=== PATIENT | male | born 1995 | race Caucasian/White ===

== ENCOUNTER 2020-01-23 14:59 | Outpatient (REF) | payer MEDICAID, SELFPAY ==
[2020-01-23 15:57] LABS: MANUAL DIFF FLAG NO
[2020-01-23 16:04] LABS: Basophils Percent Auto 0.4 % (0-2); Eosinophils Absolute Auto 0.3 X10*3/uL (0.0-0.4); Eosinophils Percent Auto 3.5 % (0-4); Hematocrit 46.3 % (42-52); Hemoglobin 15.3 g/dl (14.0-18.0); Imm Gran Abs Auto 0.03 X10*3/uL (0.00-0.03); Imm Gran Pct Auto 0.4 % (0.0-0.4); Lymphocytes Percent Auto 12.6 % (20-40); Mean Corpuscular Hemoglobin 29.5 pg (27.0-33.0); Mean Corpuscular Volume 89.2 fL (80-98); Mean Platelet Volume 10.4 fL (9.4-12.4); Monocytes Absolute Auto 0.5 X10*3/uL (0.1-1.2); Monocytes Percent Auto 6.9 % (2-11); Neutrophils Absolute Auto 5.9 X10*3/uL (2.0-8.3); Neutrophils Percent Auto 76.2 % (45-73); Platelet Count 217 X10*3/uL (160-400); Red Blood Count 5.19 X10*6/uL (4.60-5.80); Red Cell Distribution Width 12.5 % (11.0-16.0); White Blood Count 7.8 X10*3/uL (4.8-10.8)
[2020-01-23 16:24] LABS: Alanine Aminotransferase 26 U/L (0-40); Albumin Level 4.8 g/dL (3.5-5.0); Alkaline Phosphatase 47 U/L (39-117); Anion Gap 12 (12-20); Aspartate Amino Transferase 28 U/L (5-37); Bilirubin Total 0.5 mg/dL (0.0-1.0); Blood Urea Nitrogen 10 mg/dL (9-16); Calcium 9.2 mg/dL (8.4-10.2); Carbon Dioxide 27 mmol/L (22-29); Chloride 104 mmol/L (96-108); Estimated Glomerular Filt Rate > 60; Glucose Random 96 mg/dL (60-115); Potassium 3.9 mmol/l (3.3-5.1); Sodium 139 mmol/L (135-145); Total Protein 7.5 g/dL (6.5-8.0)
== END 2020-01-23 15:00 | disposition home or self-care (01) ==
LOC: HO.LAB 14:59
PROVIDERS: PCP Family Medicine; Visit Provider Family Medicine
DX: K92.1 Melena (principal); R10.84 Generalized abdominal pain
CPT/HCPCS: 36415; 80053; 85025

== ENCOUNTER 2020-01-24 10:33 | Outpatient (REF) | payer MEDICAID, SELFPAY | END 2020-01-24 10:34 | disposition home or self-care (01) | LOC: HO.LNP 10:33 | PROVIDERS: Visit Provider Family Medicine | DX: R10.84 Generalized abdominal pain (principal); K92.1 Melena | CPT/HCPCS: 87338 ==

== ENCOUNTER → 2020-04-09 14:08 | Outpatient (BNVA) | payer MEDICAID, SELFPAY | PROVIDERS: PCP Family Medicine; Visit Provider Physician Assistant | DX: Z76.89 Persons encountering health services in other specified circumstances (principal) ==

== ENCOUNTER 2020-05-02 12:10 | Day surgery (SDC) | payer MEDICAID, SELFPAY ==
[2020-04-25 20:17] VITALS: BMI 22.0
--- NOTE | 2020-05-01 12:03 | HO.ANESPROP2 ---
Documented by User: Ana Ndiaye 05/01/20 12:09 HPI - Anesthesia Eval Consult details Narrative: 24yo M for Upper Endoscopy and Colonoscopy FORMERLY [facility], [facility] Past Medical History Medical History Hypertension Left upper quadrant pain Rectal bleeding Family History Family History Father Unknown family medical history Mother No problems noted. Social History Social History Household Members: Family Alcohol intake: current Smoking Status: Never smoker Second Hand Smoke Exposure: No Use of substances other than those prescribed or required for medical reasons: Yes Substance Use Type: Marijuana Substance Use Frequency: Daily Advance Directives: No Advance Directives Information Provided: No Advance Directives on File: No Recently lost weight without trying: No Current occupational status: unemployed Meds Allergies Allergy/AdvReac Type Severity Reaction Status Date / Time Penicillins [PENICILLINS] Allergy Unknown HIVES Verified 05/02/20 12:31 Home Medications Medication Instructions Recorded Confirmed Type cholecalciferol (vitamin D3) 125 mcg PO DAILY 04/25/20 04/25/20 History [Vitamin D3] multivitamin 1 tab PO DAILY 04/25/20 04/25/20 History omega 7-qzn-gdl-fish oil [Fish Oil] 1 cap PO BID 04/25/20 04/25/20 History Exam Exam Date and Time: May 01, 2020 1203 Height,Weight and Vital Signs: Height 5 ft 8 in Weight 65.771 kg Assessment and Plan Assessment Anesthesia Assessment: Chart Reviewed Documented by User: Iwona Nelson 05/02/20 13:36 FORMERLY [facility], [facility] Past Medical History Medical History Hypertension Left upper quadrant pain Rectal bleeding Family History Family History Father Unknown family medical history Mother No problems noted. Social History Social History (Reviewed 05/02/20 @ 13:28 by Iwona Clarke Household Members: Family Alcohol intake: current Smoking Status: Never smoker Second Hand Smoke Exposure: No Use of substances other than those prescribed or required for medical reasons: Yes Substance Use Type: Marijuana Substance Use Frequency: Daily Advance Directives: No Advance Directives Information Provided: No Advance Directives on File: No Recently lost weight without trying: No Current occupational status: unemployed Meds Allergies Allergy/AdvReac Type Severity Reaction Status Date / Time Penicillins [PENICILLINS] Allergy Unknown HIVES Verified 05/02/20 12:31 Home Medications Medication Instructions Recorded Confirmed Type cholecalciferol (vitamin D3) 125 mcg PO DAILY 04/25/20 04/25/20 History [Vitamin D3] multivitamin 1 tab PO DAILY 04/25/20 04/25/20 History omega 0-ufw-qlu-fish oil [Fish Oil] 1 cap PO BID 04/25/20 04/25/20 History Exam Airway Mallampati Class: II TM Dist: >3cm Neck ROM: Full Heart: RRR Lungs: CTA Assessment and Plan Assessment Anesthesia Assessment: Anesthesia Plan Discussed Final Anesthetic Review NPO: Yes ASA Class: II Final Preanesthetic Review: Meds/Allgs Chart Reviewed, Consent Obtained/Reviewed and Anes Risks/Benef Reviewed Patient Risk: Low Procedure Risk: Intermediate Anesthetic Plan Anesthetic Plan: MAC: Disposition: Standard PACU
[2020-05-02 12:25] VITALS: BP 145/82; PULSE 68; RESP 18; TEMP 36.6; O2SAT 100
[2020-05-02] MEDS: Lactated Ringers 1,000 ML 100 ML IVCONT (12:31)
--- NOTE | 2020-05-02 13:22 | P.OP_ITS ---
Operative Note Operative Note Date of Service: 05/02/20 Narrative: Operative Information Procedure Description: EGD, Colonoscopy FLEXIBLE TRANSORAL UPPER GASTROINTESTINAL ENDOSCOPY AND COLONOSCOPY PROCEDURE NOTE UPPER ENDOSCOPY Consent: Indications for the procedure and potential complications of bleeding, perforation, reaction to medications and missed diagnosis were discussed with the patient and informed consent was obtained. Instrument: Olympus GIF H 190 J mid size upper endoscope Monitoring: Vital signs and clinical assessment, continuous EKG monitoring, Pulse oximetry, Carbon Dioxide monitoring and blood pressure monitoring were done throughout the procedure. Procedure: The patient was placed in the left lateral decubitis position and pre-procedure medications were administered and a bite block was placed. The endoscope was inserted into the mouth and advanced under direct vision to the third part of duodenum. A careful inspection was made as the upper endoscope was withdrawn including a retroflexed examination of the proximal stomach; Findings and interventions are described below. Findings: Larynx:normal Esophagus: GE junction at 40 cm, diaphragm hiatus at 40 cm, normal mucosa Stomach:Patchy erythema. Biopsies were obtained. Grade 3 flap valve on retroflexed examination of the cardia. Patulous LES Duodenum: Normal bulb and descending duodenum, bx taken Intervention: Biopsies as noted above COLONOSCOPY Instrument: Olympus variable stiffness pediatric scope 190L Colonoscopy Monitoring: Vital signs and clinical assessment, continuous EKG monitoring, Pulse oximetry, Carbon Dioxide monitoring and blood pressure monitoring were done throughout the procedure. Colon withdrawal time was 10 minutes. Procedure: The patient was placed in the left lateral decubitis position and pre-procedure medications were administered. After a digital rectal examination of the ano-rectum, the video colonoscope was inserted into the rectum and advanced through the colon to the cecum/TI. The colonoscope was slowly withdrawn in a retrograde panoramic fashion and the colon mucosa was carefully examined including a retroflexed view of the rectum. Findings and interventions are described below. Procedure Difficulty:easy Findings: bx taken from TI, right colon, transverse, left colon and rectum in separate jars Terminal Ileum-normal Cecum:normal Ascending Colon: normal Transverse Colon -normal Descending Colon:normal Sigmoid Colon: normal Rectum: Patchy erythema with edema and erosions noted in distal and proximal rectal vault Retroflexion with small internal hemorrhoids, grade I Anorectum - normal Colon preparation: [place] Bowel Preparation Scale Right colon; 2 Transverse colon:3 Left colon; 2 (0 = Unprepared colon segment with mucosa not seen due to solid stool that cannot be cleared. 1 = Portion of mucosa of the colon segment seen, but other areas of the colon segment not well seen due to staining, residual stool and/or opaque liquid. 2 = Minor amount of residual staining, small fragments of stool and/or opaque liquid, but mucosa of colon segment seen well. 3 = Entire mucosa of colon segment seen well with no residual staining, small fragments of stool or opaque liquid) Impression and Post Procedure Diagnosis: Endoscopy Findings: gastritis Colonoscopy Findings: proctitis internal hemorrhoids Plan: Await Pathology results Repeat Colonoscopy aged 45 or earlier if clinically indicated High fiber diet leaflet avoid straining at stool, epsom salts and sitz bath, anusol supps or cream prn trial of proctofoam Above findings were reviewed with the patient and relevant handouts were provided if indicated.
--- NOTE | 2020-05-02 13:22 | MHC.SHP ---
Pre-Procedural Eval Section B Chief Complaint: rectal bleeding Relevant Family History (Specify if Yes): No Relevant Social History: None Present Medications: see Short Stay Collaborative assessment Medical History: Significant History (Hypertension Left upper quadrant pain Rectal bleeding) History of Previous Operations: No relevant previous surgery Allergies: Allergies Allergy/AdvReac Type Severity Reaction Status Date / Time Penicillins [PENICILLINS] Allergy Unknown HIVES Verified 05/02/20 12:31 Review of Systems Sugical H&P ROS: Negative: Constitution, Cardiovascular, Respiratory, Neurological, Psychiatric, Hem-Onc, Allergic/Immunologic, Gastrointestinal, Genitourinary, Musculoskeletal, Integumentary, Endocrine and Eyes/Ears/Nose/Throat Exam Surgical H&P Exam: Normal: HEENT, Normal: Heart, Normal: Lungs, Normal: Extremities, Normal: Abdomen, Normal: Skin and Normal: Neurological Plan Diagnosis/Plan: Unchanged I have reviewed the history and physical and performed a pertinent physical examination on my patient. No changes have occurred unless specified.
--- NOTE | 2020-05-02 13:22 | PM.OP ---
Brief Operative Note Date of Service: 05/02/20 Pre-op diagnosis: luq pain and rectal bleeding Post-op diagnosis: same Procedure: see op note Surgeon: Jorge Saleh MD Anesthesia: MAC Estimated blood loss (mL): 0 Condition: stable Disposition: PACU
[2020-05-02 14:33] VITALS: BP 117/52; PULSE 80; RESP 16; TEMP 36.2; O2SAT 100
[2020-05-02 14:48] VITALS: BP 119/83; PULSE 78; RESP 18; TEMP 36.2; O2SAT 100
--- NOTE | 2020-05-02 15:23 | HO.POSTANES ---
Post Anesthesia Evaluation Post Anesthesia Evaluation Vital Signs: Vital Signs Temp Pulse Resp BP Pulse Ox 05/02/20 14:48 97.2 F 78 18 119/83 100 05/02/20 14:33 97.2 F 80 16 117/52 L 100 05/02/20 12:25 98 F 68 18 145/82 H 100 Anesthesia: Monitored Mental Status: Awake Pain Control: Satisfactory Nausea/Vomiting: None Hydration: Adequate Anesthesia-Related Issues: No Anes. Related Issues
== END 2020-05-02 15:22 ==
LOC: HO.SSS 12:10
PROVIDERS: PCP Family Medicine; Visit Provider Internal Medicine Gastroenterology
PROC: (CPT 45380; principal; 2020-05-02 13:20)
DX: K62.5 Hemorrhage of anus and rectum (principal); K62.89 Other specified diseases of anus and rectum; K64.0 First degree hemorrhoids; K29.50 Unspecified chronic gastritis without bleeding; K44.9 Diaphragmatic hernia without obstruction or gangrene; I10 Essential (primary) hypertension; F12.90 Cannabis use, unspecified, uncomplicated; Z88.0 Allergy status to penicillin; Z79.899 Other long term (current) drug therapy
CPT/HCPCS: 45380; 43239; 88305; 88342; J2250

== ENCOUNTER → 2020-05-23 12:05 | Outpatient (BNVA) | payer MEDICAID, SELFPAY | PROVIDERS: PCP Family Medicine; Visit Provider Physician Assistant ==

== ENCOUNTER 2021-02-08 16:26 | Outpatient (REF) | payer MEDICAID, SELFPAY ==
--- NOTE | ~2021-02-08 | XR_ITS ---
EXAMINATION: XR LUMBOSACRAL SPINE WITH OBLIQUES CLINICAL INFORMATION: Low back pain. COMPARISON: None TECHNIQUE: AP, both oblique, and lateral views of the lumbar spine. Lateral view of the lumbosacral junction. FINDINGS: The vertebral bodies and posterior elements are normal. The disc spaces are preserved and the vertebral alignment is normal. The paraspinal soft tissues are normal. XR/XR lumbar spine 4V min IMPRESSION: Unremarkable examination.
== END 2021-02-08 16:27 | disposition home or self-care (01) ==
LOC: HO.XRAY 16:26
PROVIDERS: PCP Family Medicine; Visit Provider Nurse Practitioner Family
DX: M54.50 Low back pain, unspecified (principal)
CPT/HCPCS: 72110

== ENCOUNTER 2021-02-14 19:29 | Emergency (ER) | payer MEDICAID, SELFPAY ==
--- NOTE | 2021-02-14 | ECG_ITS ---
Test Reason : HIGH BLOOD PRESSURE/ PALPITATION Blood Pressure : / mmHG Vent. Rate : 105 BPM Atrial Rate : 105 BPM P-R Int : 128 ms QRS Dur : 098 ms QT Int : 344 ms P-R-T Axes : 066 051 039 degrees QTc Int : 454 ms Sinus tachycardia Otherwise normal ECG No previous ECGs available Referred By: Generic ED Physician Electronically Signed By:MARK ROBLERO MD
[2021-02-14 19:35] VITALS: BP 171/88; PULSE 115; RESP 20; TEMP 36.8; O2SAT 100; BMI 23.6
[2021-02-14 20:11] VITALS: BP 165/91; PULSE 97; RESP 18; TEMP 37.2; O2SAT 100
--- NOTE | 2021-02-14 20:12 | ED.GENADULT ---
HPI - General Adult General Chief complaint: Arrhythmia/Palpitations Stated complaint: high bp, palpitations Time Seen by Provider: 02/14/21 20:12 Source: patient Mode of arrival: ambulatory Limitations: no limitations History of Present Illness HPI narrative: Patient history of hypertension since age 10 used to be on lisinopril 2.5 mg daily which he stopped 1 year ago as his blood pressure was normal for last few days noticed palpitation with blood pressure reading to 160/90 on arrival patient's blood pressure was 171/88 heart rate was 115 on arrival patient seems slightly anxious denies any chest pain or shortness of breath Related Data Home Medications Medication Instructions Recorded Confirmed cholecalciferol (vitamin D3) 125 125 mcg PO DAILY 04/25/20 04/25/20 mcg (5,000 unit) tablet (Vitamin D3) multivitamin 1 tab PO DAILY 04/25/20 04/25/20 omega 8-xdj-xwf-fish oil 60 mg-90 1 cap PO BID 04/25/20 04/25/20 mg-500 mg capsule (Fish Oil) Previous Rx's Medication Instructions Recorded bisacodyl 5 mg tablet,delayed 10 mg PO ONCE 1 Days #2 tab 04/25/20 release (Dulcolax (bisacodyl)) polyethylene glycol 3350 17 238 g PO ONCE 1 Days #238 g 04/25/20 gram/dose oral powder (Miralax) hydrocortisone 1 %-pramoxine 1 % 1 appl AR BID #10 g 05/02/20 rectal foam (Proctofoam HC) hydrocortisone acetate 25 mg 25 mg AR DAILY PRN #24 ea 05/23/20 rectal suppository (Anusol-HC) hydrocortisone 2.5 % topical cream 1 appl AR BID PRN #30 g 05/25/20 with perineal applicator (Proctozone-HC) hydrocortisone 2.5 % topical cream 1 appl AR BID-QID PRN #30 g 06/07/20 with perineal applicator (Procto-Med HC) lisinopril 2.5 mg tablet 2.5 mg PO DAILY #30 tab 02/14/21 Allergies Allergy/AdvReac Type Severity Reaction Status Date / Time Penicillins [PENICILLINS] Allergy Unknown HIVES Verified 02/14/21 19:35 Review of Systems Review of Systems: Yes all other systems are reviewed and are negative [facility] Past Medical History Medical History (Updated 02/14/21 @ 20:42 by Nate Kulkarni MD) Gastritis Hypertension Family History Family History Father Unknown family medical history Mother No problems noted. Social History Social History Household Members: Family Alcohol intake: current Alcohol intake frequency: a few times a month Second Hand Smoke Exposure: No Substance Use Type: Marijuana Advance Directives: No Advance Directives Information Provided: Yes Current occupational status: unemployed Physical Exam Vital Signs: Vital Signs: Last Vital Signs Temp 98.9 F 02/14/21 20:11 Pulse 97 02/14/21 20:11 Resp 18 02/14/21 20:11 BP 165/91 H 02/14/21 20:11 Pulse Ox 100 02/14/21 20:11 Body Mass Index 23.6 Appearance: Alert. Oriented X3. No acute distress. Eyes: No pallor/ icterus ENT: Pharynx normal. Oral Mucosa moist Neck: Normal inspection. Neck supple. CVS: Normal heart rate and rhythm. Pulses normal. Respiratory: No respiratory distress. Equal air entry bilateral, no wheezing/rales/rhonchi Abdomen: Soft and nontender. Bowel sounds are present, no mass palpable, no CVA tenderness Skin: Skin warm and dry. Normal skin color. Normal skin turgor. Extremities: No lower extremity edema. No calf tenderness Neuro: Oriented X 3. No motor deficit. Medical Decision Making MDM Narrative Medical decision making narrative: Patient with history of hypertension since childhood already took 5 mg lisinopril prior to arrival will give him Lopressor 50 mg represcribe him lisinopril 2.5 mg daily advised to follow PCP Discharge Plan Discharge Clinical Impression: Hypertension Qualifiers: Hypertension type: primary hypertension Qualified Code(s): I10 - Essential (primary) hypertension Patient Disposition: Home, Self-Care Instructions: Hypertension (ED) Additional Instructions: Decrease salt intake Take blood pressure medicine as prescribed daily and check blood pressure should be less than 140/90 Prescriptions: New lisinopril 2.5 mg tablet 2.5 mg PO DAILY Qty: 30 RF: 3 No Action bisacodyl [Dulcolax (bisacodyl)] 5 mg tablet,delayed release (DR/EC) 10 mg PO ONCE 1 Days Qty: 2 RF: 0 polyethylene glycol 3350 [Miralax] 17 gram/dose powder 238 g PO ONCE 1 Days Qty: 238 RF: 0 hydrocortisone [Proctozone-HC] 2.5 % cream with perineal applicator 1 appl AR BID PRN (Reason: hemorrhoids) Qty: 30 RF: 3 hydrocortisone [Procto-Med HC] 2.5 % cream with perineal applicator 1 appl AR BID-QID PRN (Reason: hemorrhoids) Qty: 30 RF: 0 multivitamin Tablet 1 tab PO DAILY RF: 0 cholecalciferol (vitamin D3) [Vitamin D3] 125 mcg (5,000 unit) Tablet 125 mcg PO DAILY RF: 0 omega 3-xka-ozd-fish oil [Fish Oil] 60-90-500 mg Capsule 1 cap PO BID RF: 0 Proctofoam HC 1-1 % foam 1 appl AR BID Qty: 10 RF: 1 hydrocortisone acetate [Anusol-HC] 25 mg suppository 25 mg AR DAILY PRN (Reason: hemorrhoids) Qty: 24 RF: 0 Interventions: ED Discharge Assessment Last Done: 02/14/21 20:29 Discharge Date/Time: 02/14/21 20:30
[2021-02-14] MEDS: Metoprolol Tartrate 50 MG TABLET PO (20:25)
== END 2021-02-14 20:30 | disposition home or self-care (01) ==
PROVIDERS: Emergency Provider Internal Medicine; PCP Family Medicine
DX: I10 Essential (primary) hypertension (principal)
CPT/HCPCS: 93005; 99283